=== PATIENT | female | born 1960 | race Caucasian/White ===

== ENCOUNTER 2017-07-07 07:39 | Inpatient (IN) | payer MEDICAID ==
[2017-07-07 07:43] VITALS: BMI 30.2
[2017-07-07] MEDS ORDERED: Sodium Chloride 0.9% 1,000 ML IV STA ×2 (08:42→10:57)
--- NOTE | 2017-07-07 08:59 | ED PDOC ---
HPI: Psych/Substance Abuse Time Seen by Provider: 07/07/17 08:41 Chief Complaint (Nursing): Psychiatric Evaluation History Per: Patient (brought by EMS for evaluation of suicidal ideation. Unclear who called. Patient states she was took 5 tablets of Fioricet because she was to hurt herself. ) History/Exam Limitations: no limitations Current Symptoms Are (Timing): Still Present Modifying Factor(s): Narcotics Severity: Moderate Past Medical History Reviewed: Historical Data, Nursing Documentation, Vital Signs Vital Signs: Last Vital Signs Temp 98.8 F 07/07/17 07:42 Pulse 122 H 07/07/17 07:42 Resp 18 07/07/17 07:42 BP 170/86 H 07/07/17 07:42 Pulse Ox 96 07/07/17 07:42 - Medical History PMH: Fibromyalgia, HTN, Migraine - Family History Family History: States: No Known Family Hx - Living Arrangements Living Arrangements: With Family - Immunization History Hx Tetanus Toxoid Vaccination: No Hx Influenza Vaccination: No Hx Pneumococcal Vaccination: No - Home Medications Home Medications: Ambulatory Orders Medication Instructions Recorded ASA/Bpm/Dm/Ppa HCl 05/18/13 Cetirizine HCl 05/18/13 DULoxetine 05/18/13 Gabapentin 05/18/13 Lisinopril 05/18/13 Metoprolol 05/18/13 Ondansetron 05/18/13 Prilosec 05/18/13 Ranitidine 05/18/13 Sertraline 05/18/13 traZODone 05/18/13 - Allergies Allergies/Adverse Reactions: Allergies Allergy/AdvReac Type Severity Reaction Status Date / Time Sulfa (Sulfonamide Allergy RASH Verified 07/07/17 07:47 Antibiotics) Review of Systems ROS Statement: Except As Marked, All Systems Reviewed And Found Negative Physical Exam - Reviewed Nursing Documentation Reviewed: Yes Vital Signs Reviewed: Yes - Physical Exam Appears: Positive for: Well, Non-toxic, No Acute Distress Head Exam: Positive for: ATRAUMATIC, NORMAL INSPECTION, NORMOCEPHALIC Skin: Positive for: Normal Color, Warm, DRY Eye Exam: Positive for: Normal appearance, EOMI, PERRL (diated and reactive bilaterally) ENT: Positive for: Normal ENT Inspection Neck: Positive for: Normal, Painless ROM Cardiovascular/Chest: Positive for: Regular Rate, Rhythm Respiratory: Positive for: CNT, Normal Breath Sounds Gastrointestinal/Abdominal: Positive for: Normal Exam, Bowel Sounds, Soft Back: Positive for: Normal Inspection Extremity: Positive for: Normal ROM Neurologic/Psych: Positive for: Alert, Oriented - Laboratory Results Result Diagrams: 07/07/17 09:00 07/07/17 09:00 - ECG O2 Sat by Pulse Oximetry: 96 - Critical Care Total Time (In Min): 30 Medical Decision Making Medical Decision Making: Case d/w Poison Control - will admit to medicine/telemetry - start Acetadote - repeat LFTs and acetaminophen levels 1 hour after 3rd dose of acetadote. Case d/w Dr. Arenas covering for Dr. Carlos Delacruz Disposition - Clinical Impression Clinical Impression: Tylenol overdose - Patient ED Disposition Is Patient to be Admitted: No Doctor Will See Patient In The: Office Counseled Patient/Family Regarding: Diagnosis, Need For Followup - Disposition Disposition: Transfer of Care Disposition Time: 11:00 Condition: GUARDED Forms: [facility] (Polish) - Pt Status Changed To: Hospital Disposition Of: Inpatient - Admit Certification Admit to Inpatient:: After my assessment, the patient will require hospitalization for at least two midnights. This is because of the severity of symptoms shown, intensity of services needed, and/or the medical risk in this patient being treated as an outpatient. - POA Present On Arrival: None
[2017-07-07 09:15] LABS: BASO # 0.1 K/uL (0.0-0.2); BASO % 0.7 % (0.0-2.0); EOS % 0.3 % (0.0-4.0); LYMPH # 2.6 K/uL (1.0-4.3); LYMPH % 30.9 % (20.0-40.0); MEAN CELL VOLUME 89.2 fl (81.0-99.0); MEAN CORPUSCULAR HGB CONC 32.5 g/dL (33.0-37.0); MEAN PLATELET VOLUME 8.1 fl (7.2-11.7); MONO # 0.6 K/uL (0.0-0.8); MONO % 6.8 % (0.0-10.0); NEUT # 5.2 K/uL (1.8-7.0); NEUT % 61.3 % (50.0-75.0); RBC 4.49 Mil/uL (3.80-5.20); RED CELL DISTRIBUTION WIDTH 14.8 % (11.5-14.5); WHITE BLOOD COUNT 8.5 K/uL (4.8-10.8)
[2017-07-07 09:41] LABS: ALB/GLOB RATIO 1.4 (1.0-2.1); ALBUMIN 4.3 g/dL (3.5-5.0); ALT/SGPT 32 U/L (9-52); AST/SGOT 27 U/L (14-36); BLOOD UREA NITROGEN 8 mg/dl (7-17); CALCIUM 9.4 mg/dL (8.4-10.2); GFR AFRICAN-AMERICAN > 60; GFR NON-AFRICAN AMERICAN > 60
[2017-07-07 11:01] LABS: SALICYLATE < 1.0 mg/dl
[2017-07-07] MEDS ORDERED: Acetylcysteine 10,890 MG in Dextrose 5% In Water 200 ML IVPB ONE (11:12)
[2017-07-07] MEDS ORDERED: Acetylcysteine 3,630 MG in Dextrose 5% In Water 500 ML IVPB ONE (12:30)
--- NOTE | 2017-07-07 13:23 | RAD ---
HISTORY: admission, tylenol OD COMPARISON: 10/11/2009 FINDINGS: LUNGS: No active pulmonary disease. PLEURA: No significant pleural effusion identified, no pneumothorax apparent. CARDIOVASCULAR: Normal. OSSEOUS STRUCTURES: No significant abnormalities. VISUALIZED UPPER ABDOMEN: Normal. OTHER FINDINGS: None. IMPRESSION: No active disease.
--- NOTE | 2017-07-07 13:48 | CP.PCM.HP ---
History of Present Illness - History of Present Illness History of Present Illness: This is a 57 y/o female admitted for suicidal drug overdose. She apparently took a significant amount of fioricet tablets. Past Patient History - Past Social History Smoking Status: Never Smoked - CARDIAC Hx Hypertension: Yes - NEUROLOGICAL Hx Migraine: Yes - PSYCHIATRIC Hx Substance Use: No Meds Allergies/Adverse Reactions: Allergies Allergy/AdvReac Type Severity Reaction Status Date / Time Sulfa (Sulfonamide Allergy RASH Verified 07/07/17 07:47 Antibiotics) Results - Vital Signs Recent Vital Signs: Last Vital Signs Temp 98.8 F 07/07/17 07:42 Pulse 110 H 07/07/17 11:38 Resp 20 07/07/17 11:38 BP 141/81 07/07/17 11:38 Pulse Ox 100 07/07/17 11:38 - Labs Result Diagrams: 07/07/17 09:00 07/07/17 09:00 Labs: Laboratory Results - last 24 hr 07/07/17 07/07/17 07/07/17 07:58 09:00 09:00 WBC RBC Hgb Hct MCV MCH MCHC RDW Plt Count MPV Neut % (Auto) Lymph % (Auto) [place] % (Auto) Eos % (Auto) Baso % (Auto) Neut # (Auto) Lymph # (Auto) [place] # (Auto) Eos # (Auto) Baso # (Auto) Sodium 142 Potassium 3.9 Chloride 102 Carbon Dioxide 23 Anion Gap 21 H BUN 8 Creatinine 0.6 L Est GFR ( Amer) > 60 Est GFR (Non-Af Amer) > 60 POC Glucose (mg/dL) 162 H Random Glucose 161 H Calcium 9.4 Total Bilirubin 0.4 AST 27 ALT 32 Alkaline Phosphatase 97 Total Protein 7.6 Albumin 4.3 Globulin 3.2 Albumin/Globulin Ratio 1.4 Salicylates < 1.0 Acetaminophen 138.0 H Alcohol, Quantitative < 10 07/07/17 09:00 WBC 8.5 RBC 4.49 Hgb 13.0 Hct 40.1 MCV 89.2 MCH 29.0 MCHC 32.5 L RDW 14.8 H Plt Count 249 MPV 8.1 Neut % (Auto) 61.3 Lymph % (Auto) 30.9 [place] % (Auto) 6.8 Eos % (Auto) 0.3 Baso % (Auto) 0.7 Neut # (Auto) 5.2 Lymph # (Auto) 2.6 [place] # (Auto) 0.6 Eos # (Auto) 0.0 Baso # (Auto) 0.1 Sodium Potassium Chloride Carbon Dioxide Anion Gap BUN Creatinine Est GFR ( Amer) Est GFR (Non-Af Amer) POC Glucose (mg/dL) Random Glucose Calcium Total Bilirubin AST ALT Alkaline Phosphatase Total Protein Albumin Globulin Albumin/Globulin Ratio Salicylates Acetaminophen Alcohol, Quantitative
[2017-07-07 14:09] LABS: BASO % 0.1 % (0.0-2.0); HEMOGLOBIN 12.7 g/dL (12.0-16.0); LYMPH # 1.2 K/uL (1.0-4.3); LYMPH % 17.2 % (20.0-40.0); MEAN CELL VOLUME 88.9 fl (81.0-99.0); MEAN CORPUSCULAR HEMOGLOBIN 28.8 pg (27.0-31.0); MEAN CORPUSCULAR HGB CONC 32.4 g/dL (33.0-37.0); MEAN PLATELET VOLUME 7.6 fl (7.2-11.7); MONO # 0.3 K/uL (0.0-0.8); MONO % 4.2 % (0.0-10.0); NEUT # 5.5 K/uL (1.8-7.0); NEUT % 78.5 % (50.0-75.0); NRBC % 0.1 % (0.0-0.0); RBC 4.42 Mil/uL (3.80-5.20); RED CELL DISTRIBUTION WIDTH 14.4 % (11.5-14.5)
[2017-07-07 14:19] LABS: ALB/GLOB RATIO 1.5 (1.0-2.1); ALBUMIN 4.5 g/dL (3.5-5.0); ALT/SGPT 28 U/L (9-52); AST/SGOT 27 U/L (14-36); BLOOD UREA NITROGEN 5 mg/dl (7-17); CALCIUM 8.3 mg/dL (8.4-10.2); GFR AFRICAN-AMERICAN > 60; GFR NON-AFRICAN AMERICAN > 60
[2017-07-07 14:42] LABS: INR 1.1 (0.9-1.2); PARTIAL THROMBOPLASTIN TIME 25.4 Seconds (25.6-37.1); PROTHROMBIN TIME 12.7 Seconds (9.8-13.1)
--- NOTE | 2017-07-07 15:01 | CT ---
PROCEDURE: CT HEAD WITHOUT CONTRAST. HISTORY: Tylenol OD, confusion COMPARISON: None available. TECHNIQUE: Axial computed tomography images were obtained through the head/brain without intravenous contrast. Radiation dose: Total exam DLP = 737.04 mGy-cm. This CT exam was performed using one or more of the following dose reduction techniques: Automated exposure control, adjustment of the mA and/or kV according to patient size, and/or use of iterative reconstruction technique. FINDINGS: HEMORRHAGE: No intracranial hemorrhage. BRAIN: No mass effect or edema. No atrophy or chronic microvascular ischemic changes. VENTRICLES: Unremarkable. No hydrocephalus. CALVARIUM: Unremarkable. PARANASAL SINUSES: Unremarkable as visualized. No significant inflammatory changes. MASTOID AIR CELLS: Unremarkable as visualized. No inflammatory changes. OTHER FINDINGS: None. IMPRESSION: Normal CT of the Head. No intracranial mass, hemorrhage or evidence of acute infarct.
[2017-07-07 15:10] LABS: BARBITURATES, UR POSITIVE (NEGATIVE); BENZODIAZEPINES, UR NEGATIVE (NEGATIVE); OPIATES, UR NEGATIVE (NEGATIVE); PHENCYCLIDINE, UR NEGATIVE (NEGATIVE)
[2017-07-07 15:33] LABS: SQUAMOUS EPITHIAL < 1 /hpf (0-5); URINE BILIRUBIN NEGATIVE (NEGATIVE); URINE BLOOD SMALL (NEGATIVE); URINE CLARITY CLEAR (Clear); URINE COLOR STRAW (YELLOW); URINE GLUCOSE (UA) >=500 mg/dL (Normal); URINE HYALINE CAST 0-2 /hpf (0-2); URINE LEUKOCYTE ESTERASE TRACE Leu/uL (Negative); URINE NITRATE NEGATIVE (NEGATIVE); URINE PROTEIN NEGATIVE (NEGATIVE); URINE UROBILINOGEN 0.2-1.0 mg/dL (0.2-1.0)
[2017-07-07] MEDS ORDERED: Acetylcysteine 7,260 MG in Dextrose 5% In Water 1,000 ML IVPB ONE (16:30)
--- NOTE | 2017-07-08 07:28 | CARD ---
APPROVED REPORT EKG Measurement Heart [id number] <Conclusion> Sinus tachycardia T wave abnormality, consider inferior ischemia Abnormal ECG
[2017-07-08 12:33] LABS: INR 1.2 (0.9-1.2); PROTHROMBIN TIME 13.1 Seconds (9.8-13.1)
[2017-07-08 12:38] LABS: ALB/GLOB RATIO 1.3 (1.0-2.1); ALBUMIN 4.1 g/dL (3.5-5.0); BILIRUBIN,DIRECT 0.4 mg/ml (0.0-0.4)
[2017-07-08] MEDS: Petrolatum UD PAK TOP SCH ×3 (13:15→23:10)
--- NOTE | 2017-07-08 15:36 | CP.PCM.CON ---
History of Present Illness - History of Present Illness History of Present Illness: pt is a 57 years old female with previous diagnosis of depression and anxiety, currently follows up with Dr Mills, pt has been feeling increasingly depressed and lonely, pt has been suffering from fibromyalgia for long time, on day of evaluation she started having suicidal ideations, pt overdosed on her medications, took five pills of fioricet and then contacted the ambulance pt reports depressed mood anhedonia, poor sleep and poor appetite, continues to have passive suicidal ideations, denied any current psychotic or manic symptoms Past Patient History - Past Medical History & Family History Past Medical History?: Yes - Past Social History Smoking Status: Never Smoked - CARDIAC Hx Cardiac Disorders: Yes Hx Hypertension: Yes - PULMONARY Hx Respiratory Disorders: No - NEUROLOGICAL Hx Neurological Disorder: Yes Hx Migraine: Yes - HEENT Hx HEENT Problems: No - RENAL Hx Chronic Kidney Disease: No - ENDOCRINE/METABOLIC Hx Endocrine Disorders: No - HEMATOLOGICAL/ONCOLOGICAL Hx Blood Disorders: No - INTEGUMENTARY Hx Dermatological Problems: No - MUSCULOSKELETAL/RHEUMATOLOGICAL Hx Musculoskeletal Disorders: No Hx Falls: No - GASTROINTESTINAL Hx Gastrointestinal Disorders: No - GENITOURINARY/GYNECOLOGICAL Hx Genitourinary Disorders: No - PSYCHIATRIC Hx Psychophysiologic Disorder: Yes Hx Depression: Yes Hx Substance Use: No - SURGICAL HISTORY Hx Surgeries: No - ANESTHESIA Hx Anesthesia: No Hx Anesthesia Reactions: No Hx Malignant Hyperthermia: No Meds Allergies/Adverse Reactions: Allergies Allergy/AdvReac Type Severity Reaction Status Date / Time Sulfa (Sulfonamide Allergy RASH Verified 07/07/17 07:47 Antibiotics) - Medications Medications: Current Medications Emollient Ointment (Vaseline Oint) 1 pkt TOP QID REPLACED BY [facility] Physical Exam - Psychiatric Exam Additional comments: pt seen in bed depressed , partial eye contact anxious mood and affect, terful sad, passive suicidal ideations stated she would rathe r not be alive, partial insight poor impulse control alert awake ox3 Results - Vital Signs Recent Vital Signs: Last Vital Signs Temp 98.4 F 07/08/17 13:00 Pulse 96 H 07/08/17 13:00 Resp 18 07/08/17 13:00 BP 118/84 07/08/17 13:00 Pulse Ox 100 07/08/17 13:00 - Labs Result Diagrams: 07/07/17 13:56 07/07/17 13:56 Labs: Laboratory Results - last 24 hr 07/07/17 07/08/17 07/08/17 14:40 12:16 12:16 PT 13.1 INR 1.2 Total Bilirubin 0.5 Direct Bilirubin 0.4 AST 49 H D ALT 29 Alkaline Phosphatase 67 Total Protein 7.4 Albumin 4.1 Globulin 3.3 Albumin/Globulin Ratio 1.3 Urine Color Straw Urine Clarity Clear Urine pH 6.0 Ur Specific [place] 1.016 Urine Protein Negative Urine Glucose (UA) >=500 Urine Ketones 80 Urine Blood Small Urine Nitrate Negative Urine Bilirubin Negative Urine Urobilinogen 0.2-1.0 Ur Leukocyte Esterase Trace Urine RBC (Auto) 9 H Urine Microscopic WBC 5 Ur Squamous Epith Cells < 1 Hyaline Casts 0-2 Assessment & Plan - Assessment and Plan (Free Text) Assessment: major depression recurrent severe Plan: pt presenting with depressed mood and passive suicidal ideation woul benifit from admission to psychiatry upon medical clearence pt agreed to sign for voluntary admission to psychiatry
[2017-07-08 21:25] LABS: ALB/GLOB RATIO 1.3 (1.0-2.1); ALBUMIN 3.9 g/dL (3.5-5.0); BILIRUBIN,DIRECT 0.3 mg/ml (0.0-0.4)
[2017-07-09 08:50] VITALS: O2SAT 98
[2017-07-09] MEDS: Petrolatum UD PAK TOP SCH (09:00)
--- NOTE | 2017-07-09 11:02 | CP.PCM.PN ---
Subjective - Date & Time of Evaluation Date of Evaluation: 07/08/17 Time of Evaluation: 10:00 - Subjective Subjective: Patient is much more alert and less confused. Has no headaches. Objective - Vital Signs/Intake and Output Vital Signs (last 24 hours): Temp Pulse Resp BP Pulse Ox 98.7 F 79 20 121/80 98 07/09/17 08:49 07/09/17 08:49 07/09/17 08:49 07/09/17 08:49 07/09/17 08:49 - Medications Medications: Current Medications Emollient Ointment (Vaseline Oint) 1 pkt TOP QID [facility] Last Admin: 07/08/17 23:10 Dose: 1 pkt - Labs Labs: 07/07/17 13:56 07/07/17 13:56 PT 13.1 Seconds (9.8-13.1) 07/08/17 12:16 INR 1.2 (0.9-1.2) 07/08/17 12:16 APTT 25.4 Seconds (25.6-37.1) L 07/07/17 13:56
[2017-07-09 16:28] VITALS: BP 123/95; PULSE 87; RESP 18; TEMP 98.2
--- NOTE | 2017-07-09 17:13 | CP.PCM.DIS ---
Provider - Provider Date of Admission: 07/07/17 11:17 Attending physician: Kinsey Payan MD Time Spent in preparation of Discharge (in minutes): 30 Diagnosis - Discharge Diagnosis (1) Tylenol overdose Status: Acute Hospital Course - Lab Results Lab Results: Most Recent Lab Values WBC 7.0 K/uL (4.8-10.8) 07/07/17 13:56 RBC 4.42 Mil/uL (3.80-5.20) 07/07/17 13:56 Hgb 12.7 g/dL (12.0-16.0) 07/07/17 13:56 Hct 39.3 % (34.0-47.0) 07/07/17 13:56 MCV 88.9 fl (81.0-99.0) 07/07/17 13:56 MCH 28.8 pg (27.0-31.0) 07/07/17 13:56 MCHC 32.4 g/dL (33.0-37.0) L 07/07/17 13:56 RDW 14.4 % (11.5-14.5) 07/07/17 13:56 Plt Count 233 K/uL (130-400) 07/07/17 13:56 MPV 7.6 fl (7.2-11.7) 07/07/17 13:56 Neut % (Auto) 78.5 % (50.0-75.0) H 07/07/17 13:56 Lymph % (Auto) 17.2 % (20.0-40.0) L 07/07/17 13:56 [place] % (Auto) 4.2 % (0.0-10.0) 07/07/17 13:56 Eos % (Auto) 0.0 % (0.0-4.0) 07/07/17 13:56 Baso % (Auto) 0.1 % (0.0-2.0) 07/07/17 13:56 Neut # (Auto) 5.5 K/uL (1.8-7.0) 07/07/17 13:56 Lymph # (Auto) 1.2 K/uL (1.0-4.3) 07/07/17 13:56 [place] # (Auto) 0.3 K/uL (0.0-0.8) 07/07/17 13:56 Eos # (Auto) 0.0 K/uL (0.0-0.7) 07/07/17 13:56 Baso # (Auto) 0.0 K/uL (0.0-0.2) 07/07/17 13:56 PT 13.1 Seconds (9.8-13.1) 07/08/17 12:16 INR 1.2 (0.9-1.2) 07/08/17 12:16 APTT 25.4 Seconds (25.6-37.1) L 07/07/17 13:56 Sodium 142 mmol/l (132-148) 07/07/17 13:56 Potassium 3.6 MMOL/L (3.6-5.0) 07/07/17 13:56 Chloride 100 mmol/L (98-107) 07/07/17 13:56 Carbon Dioxide 19 mmol/L (22-30) L 07/07/17 13:56 Anion Gap 27 (10-20) H 07/07/17 13:56 BUN 5 mg/dl (7-17) L 07/07/17 13:56 Creatinine 0.4 mg/dl (0.7-1.2) L 07/07/17 13:56 Est GFR ( Amer) > 60 07/07/17 13:56 Est GFR (Non-Af Amer) > 60 07/07/17 13:56 POC Glucose (mg/dL) 162 mg/dL (65-110) H 07/07/17 07:58 Random Glucose 139 mg/dL (65-105) H 07/07/17 13:56 Calcium 8.3 mg/dL (8.4-10.2) L 07/07/17 13:56 Total Bilirubin 0.4 mg/dl (0.2-1.3) 07/08/17 20:50 Direct Bilirubin 0.3 mg/ml (0.0-0.4) 07/08/17 20:50 AST 48 U/L (14-36) H 07/08/17 20:50 ALT 30 U/L (9-52) 07/08/17 20:50 Alkaline Phosphatase 72 U/L (38-126) 07/08/17 20:50 Total Protein 6.8 G/DL (6.3-8.2) 07/08/17 20:50 Albumin 3.9 g/dL (3.5-5.0) 07/08/17 20:50 Globulin 2.9 gm/dL (2.2-3.9) 07/08/17 20:50 Albumin/Globulin Ratio 1.3 (1.0-2.1) 07/08/17 20:50 Urine Color Straw (YELLOW) 07/07/17 14:40 Urine Clarity Clear (Clear) 07/07/17 14:40 Urine pH 6.0 (5.0-8.0) 07/07/17 14:40 Ur Specific [place] 1.016 (1.003-1.030) 07/07/17 14:40 Urine Protein Negative mg/dL (NEGATIVE) 07/07/17 14:40 Urine Glucose (UA) >=500 mg/dL (Normal) 07/07/17 14:40 Urine Ketones 80 mg/dL (NEGATIVE) 07/07/17 14:40 Urine Blood Small (NEGATIVE) 07/07/17 14:40 Urine Nitrate Negative (NEGATIVE) 07/07/17 14:40 Urine Bilirubin Negative (NEGATIVE) 07/07/17 14:40 Urine Urobilinogen 0.2-1.0 mg/dL (0.2-1.0) 07/07/17 14:40 Ur Leukocyte Esterase Trace [place]/uL (Negative) 07/07/17 14:40 Urine RBC (Auto) 9 /hpf (0-3) H 07/07/17 14:40 Urine Microscopic WBC 5 /hpf (0-5) 07/07/17 14:40 Ur Squamous Epith Cells < 1 /hpf (0-5) 07/07/17 14:40 Hyaline Casts 0-2 /hpf (0-2) 07/07/17 14:40 Salicylates < 1.0 mg/dl 07/07/17 09:00 Urine Opiates Screen Negative (NEGATIVE) 07/07/17 14:40 Urine Methadone Screen Negative (NEGATIVE) 07/07/17 14:40 Acetaminophen < 10.0 ug/ml (10.0-30.0) L 07/08/17 20:50 Ur Barbiturates Screen Positive (NEGATIVE) H 07/07/17 14:40 Ur Phencyclidine Scrn Negative (NEGATIVE) 07/07/17 14:40 Ur Amphetamines Screen Negative (NEGATIVE) 07/07/17 14:40 U Benzodiazepines Scrn Negative (NEGATIVE) 07/07/17 14:40 U Oth Cocaine Metabols Negative (NEGATIVE) 07/07/17 14:40 U Cannabinoids Screen Negative (NEGATIVE) 07/07/17 14:40 Alcohol, Quantitative < 10 mg/dl (0-10) 07/07/17 09:00 - Hospital Course Hospital Course: 57 YO F who presented with Tylenol overdose. Now has Acetamenophen level less then 10. Patient is stable to be transferred to psych. Discharge Exam - Head Exam Head Exam: ATRAUMATIC, NORMAL INSPECTION, NORMOCEPHALIC - Eye Exam Eye Exam: Normal appearance - Respiratory Exam Respiratory Exam: absent: Wheezes, Respiratory Distress - Cardiovascular Exam Cardiovascular Exam: REGULAR RHYTHM, +S1, +S2 - GI/Abdominal Exam GI & Abdominal Exam: Normal Bowel Sounds, Soft. absent: Tenderness - Neurological Exam Neurological exam: Alert, CN II-XII Intact, Oriented x3 - Skin Skin Exam: Normal Color, Warm Discharge Plan - Follow Up Plan Condition: GOOD Disposition: [facility]CHARGE TO [facility] Instructions: Acetaminophen Overdose (DC), Acetaminophen Overdose (GEN)
== END 2017-07-09 15:10 | DRG 449 ==
LOC: H.ER 07:39 → H.ERHOLD 11:17 → H.TEL 18:22 → H.PSYCH 07-09 15:31 → H.TEL 07-09 15:31 → H.PSYCH 07-09 16:16 → H.TEL 07-09 16:20 → H.PSYCH 07-09 17:19 → H.TEL 07-09 17:19 → UNDODISIN 07-09 17:21
PROVIDERS: ADMIT Psychiatry & Neurology Psychiatry; ATTEND Family Medicine
DX: T39.1X2A Poisoning by 4-Aminophenol derivatives, intentional self-harm, initial encounter (principal); F33.2 Major depressive disorder, recurrent severe without psychotic features; F32.9 Major depressive disorder, single episode, unspecified; F41.9 Anxiety disorder, unspecified; G43.909 Migraine, unspecified, not intractable, without status migrainosus; I10 Essential (primary) hypertension; M79.7 Fibromyalgia; Z88.2 Allergy status to sulfonamides

== ENCOUNTER 2017-07-09 15:56 | Inpatient (IN) | payer MEDICAID ==
[2017-07-09] MEDS ORDERED: Magnesium Hydroxide Susp 30 ml UD PO PRN (16:39)
[2017-07-09] MEDS ORDERED: DiphenhydrAMINE 50 mg/ml Inj IM PRN (16:39)
[2017-07-10 06:28] LABS: ALB/GLOB RATIO 1.2 (1.0-2.1); ALBUMIN 3.6 g/dL (3.5-5.0); ALT/SGPT 39 U/L (9-52); AST/SGOT 57 U/L (14-36); BLOOD UREA NITROGEN 11 mg/dl (7-17); GFR AFRICAN-AMERICAN > 60; GFR NON-AFRICAN AMERICAN > 60; HDL CHOLESTEROL 66 MG/DL (30-70)
[2017-07-10 06:29] LABS: LDL CHOLESTEROL 55 mg/dL (0-129)
[2017-07-10 06:35] LABS: T4 8.62 ug/dl (5.5-11.0)
[2017-07-10 06:37] LABS: BASO % 0.3 % (0.0-2.0); EOS # 0.1 K/uL (0.0-0.7); EOS % 1.9 % (0.0-4.0); LYMPH # 1.8 K/uL (1.0-4.3); MEAN CELL VOLUME 88.4 fl (81.0-99.0); MEAN CORPUSCULAR HEMOGLOBIN 29.5 pg (27.0-31.0); MEAN CORPUSCULAR HGB CONC 33.4 g/dL (33.0-37.0); MEAN PLATELET VOLUME 7.7 fl (7.2-11.7); MONO # 0.5 K/uL (0.0-0.8); MONO % 8.2 % (0.0-10.0); NEUT # 3.5 K/uL (1.8-7.0); NEUT % 59.6 % (50.0-75.0); NRBC % 0.1 % (0.0-0.0); RBC 4.07 Mil/uL (3.80-5.20); RED CELL DISTRIBUTION WIDTH 14.5 % (11.5-14.5); WHITE BLOOD COUNT 5.9 K/uL (4.8-10.8)
--- NOTE | 2017-07-10 08:17 | PCM.BM ---
<Martín Tubbs - Last Filed: 07/10/17 08:16> Treatment assets and liabiliti Patient Assests: self-reliant, ADL independent, good support system, negotiates basic needs, good past tx response Patient Liabilities: live alone, medical problems, imparied memory - Milieu Protocol Maintain good personal hygiene: daily Encourage regular showers, daily Assist patient to perform ADL's Conduct patient checks and document Observation sheet: Q15 minutes Maintain personal safety: every shift Educate patient to report safety concerns to staff, every shift Monitor environment for contraband/sharps Medication safety: Monitor for expected outcome, potential side effects: every shift, Assess barriers to learning: every shift, Assess readiness for medication education: every shift <Fifi Rodriguez - Last Filed: 07/11/17 16:08> Treatment assets and liabiliti Patient Assests: adapts well, cooperative, self-reliant, ADL independent, good support system, negotiates basic needs, good past tx response Patient Liabilities: live alone, medical problems, imparied memory, other (poor impulse control/coping skills) Family Contact Family involvement: Family/SO is involved Family contact: Patient agrees to contact, Family has been contacted by patient , Telephone contact initiated by staff Family contact name: Shaylee Juan-sister Family contacted how many times per week?: 2 Family contact comment: Program Coordinator placed call to patients sister (Shaylee Juan ) as requested by DAVID who is currently in [place]) to discuss patients progress on 3NP and collect further collateral information. Patients sister expressed concerns regarding patient calling her this morning reporting passive SI. Program Coordinator ensured patients sister that patient expressed SI during art therapy and staff was immediately made aware. Safety precautions and staff availability emphasized. Patients sister confirmed that patient recently began an adult medical day program as recommended by her homemaker for added structure and socialization. Program Coordinator explained that an adult medical day program was going to be this writers recommendation upon d/c. Patients sister expressed concerns regarding recent memory loss and possible dementia dx. As per Ms. Juan, patient has a supportive relationship with her sister, niece and homemaker. Patient does not have consistent/frequent communication with daughters, contributing to patients depression. Program Coordinator provided clinical updates regarding patients progress and will continue communicating with patients sister throughout discharge planning process. Patients sister agreeable to having patient return to [facility]/ Dr. Mills /[facility] services. - Outside Agency Agency 1 Care involvment: Following patient during stay, Information-sharing, Other Agency contact name: [facility] Agency contact number: [phone] Agency 2 Agency contact name: Avril(homemaker) Agency contact number: [phone] - Goals for Treatment Patient goals for treatment: Patient to continue stabilization on 3NP through medication management and group/supportive therapy. Patient to be encouraged to attend groups regularly to promote self-awareness,compliance, and improve insight, coping skills and self-esteem. Patient to be provided with referral for appropriate level of aftercare to reduce risk of future hospitalizations and ensure safety in the community. Discharge/Continuing Care - Education Needs Education Needs: Family Medication, Family Coping Skills, Family Community resources, Family Aftercare Safety Plan, Patient Medication, Patient Coping Skills, Patient Community resources, Patient Aftercare Safety Plan - Discharge Discharge Criteria: Tolerates medication w/o severe side effects, Free of Suicidal thoughts, Free of agitation, Normal sleep pattern, Ability to care for self, Reduction of target symptoms Discharge to:: Home, Other (homemaker) <Darren Corea - Last Filed: 07/19/17 17:28> Discharge/Continuing Care - Treatment Team Participation Patient/Family/SO Statement: 07/19/17 17:28 Pt offered no complaints, and was agreeable to discharge on Saturday. <Kinsey Payan - Last Filed: 07/22/17 09:29> - Diagnosis (1) Depression Status: Acute Interventions: psychotherapy, pharmacotherapy 07/22/17 09:28
--- NOTE | 2017-07-10 14:36 | PCM.PSYCH ---
Initial Psychiatric Evaluation - Initial Psychiatric Evaluation Legal Status: Capacity Chief Complaint (in patient's own words): I AM VERY LONELY AND SAD Patient's Reaction to Hospitalization: PT REQUESTED HELP History of Present Illness and Precipitating Events: pt is a 57 years old female with previous diagnosis of depression and anxiety, currently follows up with Dr Mills, pt has been feeling increasingly depressed and lonely, pt has been suffering from fibromyalgia for long time, on day of evaluation she started having suicidal ideations, pt overdosed on her medications, took five pills of fioricet and then contacted the ambulance pt reports depressed mood anhedonia, poor sleep and poor appetite, continues to have passive suicidal ideations, denied any current psychotic or manic symptoms PT also presenting with memory decline with possible pseudodementia Current Medications: Active Medications Generic Name Dose Route Start Last Admin Trade Name Freq PRN Reason Stop Dose Admin Acetaminophen 650 mg 07/09/17 16:39 Tylenol 325mg Tab PO Q4 PRN Pain, Mild (1-3) Al Hydrox/Mg Hydrox/Simethicone 30 ml 07/09/17 16:39 Maalox Plus 30 Ml PO Q4 PRN Dyspepsia Diphenhydramine HCl 50 mg 07/09/17 16:39 Benadryl IM Q6 PRN Extrapyramidal S/S Unable PO Diphenhydramine HCl 50 mg 07/09/17 16:46 07/10/17 08:24 Benadryl PO 50 mg Q6 PRN Administration dystonic reaction/eps Diphenhydramine HCl 50 mg 07/09/17 16:47 07/09/17 23:07 Benadryl PO 50 mg HS PRN Administration Sleep Duloxetine HCl 60 mg 07/10/17 14:19 Cymbalta PO DAILY MADI Emollient Ointment 1 pkt 07/10/17 13:00 Vaseline Oint TOP TID MADI Gabapentin 100 mg 07/10/17 17:00 Neurontin PO TID MADI Haloperidol 5 mg 07/09/17 16:39 07/10/17 08:23 Haldol PO 5 mg Q4 PRN Administration Agitation Haloperidol Lactate 5 mg 07/09/17 16:39 Haldol IM Q4 PRN Agitation, Unable to Take PO Lorazepam 2 mg 07/09/17 16:39 Ativan IM Q4 PRN Anxiety/Agitation,Unable PO Lorazepam 1 mg 07/10/17 14:23 Ativan PO TID PRN Anxiety Magnesium Hydroxide 30 ml 07/09/17 16:39 Milk Of Magnesia PO HS PRN Constipation Trazodone HCl 50 mg 07/10/17 22:00 Desyrel PO HS MADI Past Psychiatric History - Past Psychiatric History Explanation of prior treatment: PT HAS MULTIPLE INPATIENT HOSPITALIZATIONS DUE TO DEPRESSION AND SUICIDAL ATTEMPTS BY OVERDOSE History of ETOH/Drug Use: PT DENIED Pertinent Medical Hx (Current Medical&Sleep Prob, Allergies): Allergies Allergy/AdvReac Type Severity Reaction Status Date / Time Sulfa (Sulfonamide Allergy RASH Verified 07/07/17 07:47 Antibiotics) ASA/Bpm/Dm/Ppa HCl 05/18/13 Cetirizine HCl 05/18/13 DULoxetine 05/18/13 Gabapentin 05/18/13 Lisinopril 05/18/13 Metoprolol 05/18/13 Ondansetron 05/18/13 Prilosec 05/18/13 Ranitidine 05/18/13 Sertraline 05/18/13 traZODone 05/18/13 Mental Status Examination - Personal Presentation Personal Presentation: Looks older than stated age - Affect Affect: Constricted, Depressed - Motor Activity Motor Activity: Psychomotor Retardation - Reliability in Providing Information Reliability in Providing Information: Poor, due to altered mood - Speech Speech: Relevant - Mood Mood: Depressed, Anxious - Formal Thought Process Formal Thought Process: Circumstantial - Hallucinations/Delusions Additional comments: pt denied perceptual disturbances, non elicited - Obsessions/Compulsions Obsessions: No Compulsions: No - Cognitive Functions Orientation: Person, Place, Situation, Time Sensorium: Alert Attention/Concentration: Easily distracted Abstract Thinking: [place] Judgement: Imparied, as evidence by: Poor judgement - Risk Risk: Suicidal, Diminished functioning - Strength & Assets Inventory Strength & Assets Inventory: Family support - Limitations Additional comments: medical problems DSM 5 DX - DSM 5 DSM 5 Diagnosis: major depression recurrent severe panic disorder generalized anxiety disorder - Recommended/Plan of Treatment Treatment Recommendations and Plan of Treatment: start cymbalta 60mg trazodone 50mg qhs neurontin 100mg tid CBT group and supportive therapy
[2017-07-10] MEDS: Petrolatum UD PAK TOP SCH ×2 (14:38→17:17)
[2017-07-10] MEDS ORDERED: Metoprolol Succinate 100 mg XL Tab PO SCH (16:15)
--- NOTE | 2017-07-10 16:30 | CP.PCM.HP ---
<Vinod Meredith - Last Filed: 07/10/17 16:55> History of Present Illness - History of Present Illness History of Present Illness: 57 YO F who was initially admitted for suicidal drug overdose with Fioricet. She was medically cleared and transferred to psych. Present on Admission - Present on Admission Any Indicators Present on Admission: No Past Patient History - Past Medical History & Family History Past Medical History?: Yes - Past Social History Smoking Status: Never Smoked - CARDIAC Hx Cardiac Disorders: Yes Hx Hypertension: Yes - PULMONARY Hx Respiratory Disorders: No - NEUROLOGICAL Hx Neurological Disorder: Yes Hx Migraine: Yes - HEENT Hx HEENT Problems: No - RENAL Hx Chronic Kidney Disease: No - ENDOCRINE/METABOLIC Hx Endocrine Disorders: No - HEMATOLOGICAL/ONCOLOGICAL Hx Blood Disorders: No - INTEGUMENTARY Hx Dermatological Problems: No - MUSCULOSKELETAL/RHEUMATOLOGICAL Hx Musculoskeletal Disorders: No Hx Falls: No - GASTROINTESTINAL Hx Gastrointestinal Disorders: No - GENITOURINARY/GYNECOLOGICAL Hx Genitourinary Disorders: No - PSYCHIATRIC Hx Anxiety: Yes Hx Depression: Yes Hx Substance Use: No - SURGICAL HISTORY Hx Surgeries: No - ANESTHESIA Hx Anesthesia: No Hx Anesthesia Reactions: No Hx Malignant Hyperthermia: No Meds Allergies/Adverse Reactions: Allergies Allergy/AdvReac Type Severity Reaction Status Date / Time FISH Allergy Severe RASH Verified 07/10/17 17:26 Sulfa (Sulfonamide Allergy RASH Verified 07/07/17 07:47 Antibiotics) Physical Exam - Constitutional Appears: In Acute Distress - Head Exam Head Exam: NORMAL INSPECTION - Respiratory Exam Respiratory Exam: Clear to Auscultation Bilateral, NORMAL BREATHING PATTERN - Cardiovascular Exam Cardiovascular Exam: REGULAR RHYTHM, +S1, +S2 - Extremities Exam Extremities exam: Positive for: normal inspection - Neurological Exam Neurological exam: Alert, CN II-XII Intact, Oriented x3 - Skin Skin Exam: Warm Results - Vital Signs Recent Vital Signs: Last Vital Signs Temp 98.2 F 07/10/17 10:00 Pulse 101 H 07/10/17 10:00 Resp 18 07/10/17 10:00 BP 134/83 07/10/17 10:00 Pulse Ox - Labs Result Diagrams: 07/10/17 05:40 07/10/17 05:40 Labs: Laboratory Results - last 24 hr 07/10/17 07/10/17 07/10/17 05:40 05:40 05:40 WBC 5.9 RBC 4.07 Hgb 12.0 Hct 36.0 MCV 88.4 MCH 29.5 MCHC 33.4 RDW 14.5 Plt Count 203 MPV 7.7 Neut % (Auto) 59.6 Lymph % (Auto) 30.0 [place] % (Auto) 8.2 Eos % (Auto) 1.9 Baso % (Auto) 0.3 Neut # (Auto) 3.5 Lymph # (Auto) 1.8 [place] # (Auto) 0.5 Eos # (Auto) 0.1 Baso # (Auto) 0.0 Sodium 142 Potassium 3.6 Chloride 103 Carbon Dioxide 31 H Anion Gap 12 BUN 11 Creatinine 0.6 L Est GFR ( Amer) > 60 Est GFR (Non-Af Amer) > 60 Random Glucose 119 H Hemoglobin A1c 6.0 Calcium 9.0 Total Bilirubin 0.2 AST 57 H ALT 39 Alkaline Phosphatase 78 Total Protein 6.5 Albumin 3.6 Globulin 2.9 Albumin/Globulin Ratio 1.2 Triglycerides 52 Cholesterol 142 LDL Cholesterol Direct 55 HDL Cholesterol 66 Thyroxine (T4) 8.62 TSH 3rd Generation 0.55 Assessment & Plan - Assessment and Plan (Free Text) Assessment: 57 Y/O F w/ depression, anxiety HTN, HLD, Fibromyalgia has been transferred to psych for further management 1) HTN MEtoprolol succinate 50mg. Will increase to 100mg which is home dose if needed. Lisinopril 20 2) HLD - Home med is Rovastatin 20 - Start Atorvastatin 40 3) Depression - Continue with psych recommendation 4) DM2 - Metformin 500 mg BID 5) DVT prophylaxis - Lovenox <Polo Arenas - Last Filed: 07/15/17 19:36> Results - Vital Signs Recent Vital Signs: Last Vital Signs Temp 98.1 F 07/15/17 10:00 Pulse 73 07/15/17 10:00 Resp 16 07/15/17 10:00 BP 150/93 H 07/15/17 10:00 Pulse Ox - Labs Result Diagrams: 07/10/17 05:40 07/10/17 05:40 Assessment & Plan - Assessment and Plan (Free Text) Plan: I was present during evaluation and discussed with Dr Meredith re plans of care and mgt. Polo Arenas M.D.
[2017-07-10] MEDS: Pantoprazole 20 mg EC Tab PO SCH ×2 (17:11→17:12)
[2017-07-10] MEDS: Enoxaparin 40 mg Syringe SC SCH (17:13)
[2017-07-10] MEDS: Metoprolol Succinate 50 mg XL Tab PO SCH (17:19)
[2017-07-11] MEDS: Petrolatum UD PAK TOP SCH ×3 (08:34→17:52)
[2017-07-11] MEDS: Metoprolol Succinate 50 mg XL Tab PO SCH (08:34)
[2017-07-11] MEDS: Enoxaparin 40 mg Syringe SC SCH (08:34)
[2017-07-11] MEDS: Pantoprazole 20 mg EC Tab PO SCH (08:35)
--- NOTE | 2017-07-11 11:51 | PCM.PYCHPN ---
Psychiatric Progress Note - Psychiatric Progress Note Patient seen today, length of contact: PT EVALUATED DISCUSSED WITH TEAM CHART REVIEWED Patient Chief Complaint: Isaid I am afraid to hurt myself if I am home alone again, I am too scared to be by myself Problems Identified/Issues Discussed: pt evaluated with the treatment maria fernanda, pt presenting with anxious mood and affect, today in group verbalized that she continues to have thoughts to hurt herself but did not verbalize any current intent or plan on the unit, discussed with patient if she has any current suicidal thoughts or plans, patient denied and reported she only thinks about suicide if she is by herself at home as she gets lonely and fearful, cognitive behavior therapy provided discussed with patient the negative automatic thoughts that result in her anxiety and depression , possible alternative positive thoughts and alternative coping skills as art or music pt agreed pt reported feeling safe in the hospital as she is surrounded by supporting staff, denied any current suicidal or homicidal ideations denied perceptual disturbances, no reported changes in sleep or appetite, no reported side effects of medications Medical Problems: PT HAS MULTIPLE INPATIENT HOSPITALIZATIONS DUE TO DEPRESSION AND SUICIDAL ATTEMPTS BY OVERDOSE DSM 5 Symptoms Update: generalized anxiety disorder panic disorder Medication Change: No Medical Record Reviewed: Yes Mental Status Examination - Cognitive Function Orientation: Person, Place, Situation, Time Attention: WNL Concentration: Poor Association: WNL Fund of Knowledge: Poor Decription of patient's judgement and insights: poor insight and judgment - Mood Mood: Depressed, Anxious - Affect Affect: Constricted, Depressed - Speech Speech: Appropriate - Formal Thought Process Formal Thought Process: Circumstantial Psychotic Thoughts and Behaviors: pt denied perceptual disturbances non elicited - Suicidal Ideation Suicidal Ideation: No - Homicidal Ideation Homicidal Ideation: No Goal/Treatment Plan - Goal/Treatment Plan Need for Continued Stay: Severe depression anxiety, Discharge may exacerbated symptoms Progress Toward Problem(s) and Goals/Treatment Plan: continue cymbalta 60mg trazodone 50mg qhs increase neurontin to 200mg tid CBT group and supportive therapy
[2017-07-12] MEDS: Pantoprazole 20 mg EC Tab PO SCH (08:09)
[2017-07-12] MEDS: Metoprolol Succinate 100 mg XL Tab PO SCH (08:09)
--- NOTE | 2017-07-12 08:54 | PCM.RRT ---
Addendum entered and electronically signed by Matti Ramírez MD 07/12/17 10:11: EMILIANA ChavezM [email or web address] was also in attendance Original Note: <Matti Ramírez - Last Filed: 07/12/17 08:56> Plan - Assessment of Findings&Treatment Plan TILE SETTER APPRENTICE TILE SETTER APPRENTICE LOCATION [address] dining [place] TILE SETTER APPRENTICE REASON Fall from seated position S 57 yo F with pmhx of depression, anxiety, dm, htn, hld, fibromyalgia was witnessed on the ground after seated for breakfast O TILE SETTER APPRENTICE VITALS 189/107 97 bpm 100% Pt was seen seated and nervous with trembling. AAOX3. clear speech. Pt reported having to take many medications. Hx of suicide attempt with OD on fiorecet. vitals improved to 160/98 Cardiac: S1S2 no murmurs Lungs: clear bilaterally, no wheezing Abdomen: soft, non tender Pt was able to stand without swaying. Pt was observed to walk without abnormal gait. TILE SETTER APPRENTICE INTERVENTION continue meds including BP A/P 57 YO F with pmhx of depression, anxiety, dm, htn, hld, fibromyalgia. Mechanical fall with resulting anxiety. -Stable -Continue with Meds on board. TILE SETTER APPRENTICE LEADER: Dr. Balderas TILE SETTER APPRENTICE RESIDENTS: Dr. Ramírez, PGY1, Dr. Gruber PGY3, Dr. Grant, PGY2 <Jesus Balderas - Last Filed: 07/12/17 15:55> Plan - Assessment of Findings&Treatment Plan ATTENDING ATTESTATION: Patient was seen and examined. I discussed the case with the resident and agree with the findings and plan as documented in the residents note. ORTHOSTATICS NEGATIVE PATIENT HEMODYNAMICALLY STABLE FALL WITNESSED: NO HEAD OR NECK TRAUMA DENIES PAIN
[2017-07-12] MEDS: Petrolatum UD PAK TOP SCH ×3 (10:45→16:20)
--- NOTE | 2017-07-12 14:01 | PCM.PYCHPN ---
Psychiatric Progress Note - Psychiatric Progress Note Patient seen today, length of contact: PT EVALUATED DISCUSSED WITH TEAM CHART REVIEWED Patient Chief Complaint: I still feel anxious a lot Problems Identified/Issues Discussed: pt evaluated , presenting with anxious mood and affect, pt continues to have increased worry about most of her life events mainly about being alone on discharge, discussed with pt the need to challenge the negative automatic thoughts that make her anxious, pt continues to have passive suicidal ideations without a plan or intent on the unit reporting feeling staff when around people , pt denied psychotic symptoms no reported side effects of medications Medical Problems: PT HAS MULTIPLE INPATIENT HOSPITALIZATIONS DUE TO DEPRESSION AND SUICIDAL ATTEMPTS BY OVERDOSE DSM 5 Symptoms Update: major depression recurrent generalized anxiety disorder Medication Change: No Medical Record Reviewed: Yes Mental Status Examination - Cognitive Function Orientation: Person, Place, Situation, Time Attention: WNL Concentration: Poor Association: WNL Fund of Knowledge: Poor Decription of patient's judgement and insights: poor insight and judgment - Mood Mood: Depressed, Anxious - Affect Affect: Constricted, Depressed - Speech Speech: Appropriate - Formal Thought Process Formal Thought Process: Circumstantial Psychotic Thoughts and Behaviors: pt denied perceptual disturbances non elicited - Suicidal Ideation Suicidal Ideation: No - Homicidal Ideation Homicidal Ideation: No Goal/Treatment Plan - Goal/Treatment Plan Need for Continued Stay: Severe depression anxiety, Discharge may exacerbated symptoms Progress Toward Problem(s) and Goals/Treatment Plan: continue cymbalta 60mg trazodone 50mg qhs neurontin 200mg tid start buspar 5mg tid CBT group and supportive therapy Estimated Date of D/C: 07/19/17
[2017-07-12] MEDS: Enoxaparin 40 mg Syringe SC SCH (16:19)
[2017-07-13] MEDS: Pantoprazole 20 mg EC Tab PO SCH (08:40)
[2017-07-13] MEDS: Enoxaparin 40 mg Syringe SC SCH (08:41)
[2017-07-13] MEDS: Metoprolol Succinate 100 mg XL Tab PO SCH (08:43)
[2017-07-13] MEDS: Petrolatum UD PAK TOP SCH ×3 (08:44→17:51)
--- NOTE | 2017-07-13 15:36 | PCM.PYCHPN ---
Psychiatric Progress Note - Psychiatric Progress Note Patient seen today, length of contact: PT EVALUATED DISCUSSED WITH TEAM CHART REVIEWED Patient Chief Complaint: feeling anxious difficulty sleeping worrying about future Problems Identified/Issues Discussed: alteration in mood alteration in coping alteration in cognition Medical Problems: per chart pt being followed by hospitalist Diagnostic Results: per psychiatry per medicine per nursing per social work per recreational therapy DSM 5 Symptoms Update: alteration in mood anxious, thoughts per staff are beginning to improve, continues with difficulty sleeping Medication Change: No Medical Record Reviewed: Yes Consults ordered or reviewed: pt being followed by hospitalist Mental Status Examination - Cognitive Function Orientation: Person, Place, Situation, Time Attention: WNL Concentration: Poor Association: WNL Fund of Knowledge: Poor Decription of patient's judgement and insights: impaired - Mood Mood: Depressed, Anxious - Affect Affect: Constricted, Depressed - Speech Speech: Appropriate - Formal Thought Process Formal Thought Process: Circumstantial - Homicidal Ideation Homicidal Ideation: No Goal/Treatment Plan - Goal/Treatment Plan Need for Continued Stay: Severe depression anxiety, Discharge may exacerbated symptoms Progress Toward Problem(s) and Goals/Treatment Plan: inpt milieu vital signs and clinical observation per protocol and per clinical status complaints of insomnia will increase trazodone to 100mg po hs adjust meds per status discharge planning in progress Estimated Date of D/C: 07/19/17 - Smoking Cessation Smoking Cessation Initiated: No Reason for not providing: defers
[2017-07-14] MEDS: Pantoprazole 20 mg EC Tab PO SCH (08:34)
[2017-07-14] MEDS: Metoprolol Succinate 100 mg XL Tab PO SCH (08:35)
[2017-07-14] MEDS: Petrolatum UD PAK TOP SCH ×3 (08:37→18:01)
--- NOTE | 2017-07-14 09:48 | PN ---
DATE: 07/14/2017 MEDICAL FOLLOWUP PROGRESS NOTE SUBJECTIVE: The patient is seen and examined. The patient . The patient remains in progressive care unit on telemetry monitoring. depressed. No specific issue reported by nursing staff. PHYSICAL EXAMINATION: GENERAL: The patient is in no acute distress. VITAL SIGNS: Stable. Physical exam is essentially unchanged. DIAGNOSTIC DATA: Available diagnostic data reviewed. PLAN: Overall, the patient's general medical condition is stable, still require inpatient while treatment. Plan as ordered. Brandt Tejeda MD
--- NOTE | 2017-07-14 18:03 | PCM.PYCHPN ---
Psychiatric Progress Note - Psychiatric Progress Note Patient seen today, length of contact: PT EVALUATED DISCUSSED WITH TEAM CHART REVIEWED Patient Chief Complaint: feeling anxious difficulty sleeping worrying about future somewhat less staff report pt received prn for anxiety Problems Identified/Issues Discussed: alteration in mood alteration in coping alteration in cognition Medical Problems: per chart pt being followed by hospitalist Diagnostic Results: per psychiatry per medicine per nursing per social work per recreational therapy DSM 5 Symptoms Update: alteration in coping alteration in mood Medication Change: No Medical Record Reviewed: Yes Consults ordered or reviewed: alteration in coping Mental Status Examination - Cognitive Function Orientation: Person, Place, Situation, Time Attention: WNL Concentration: Poor Association: WNL Fund of Knowledge: Poor Decription of patient's judgement and insights: impaired - Mood Mood: Depressed, Anxious - Affect Affect: Constricted, Depressed - Speech Speech: Appropriate - Formal Thought Process Formal Thought Process: Circumstantial - Suicidal Ideation Suicidal Ideation: No - Homicidal Ideation Homicidal Ideation: No Goal/Treatment Plan - Goal/Treatment Plan Need for Continued Stay: Severe depression anxiety, Discharge may exacerbated symptoms Progress Toward Problem(s) and Goals/Treatment Plan: inpt milieu vital signs and clinical observation per protocol and per clinical status adjust meds per status discharge planning in progress Estimated Date of D/C: 07/19/17 - Smoking Cessation Smoking Cessation Initiated: No Reason for not providing: pt defers
[2017-07-15] MEDS: Pantoprazole 20 mg EC Tab PO SCH (08:54)
[2017-07-15] MEDS: Metoprolol Succinate 100 mg XL Tab PO SCH (08:55)
[2017-07-15] MEDS: Petrolatum UD PAK TOP SCH ×3 (17:58→18:00)
[2017-07-15] MEDS: Alum-Mag Hydrox-Simethicone Susp (30 mL) PO PRN ×2 (18:51→22:47)
--- NOTE | 2017-07-15 20:24 | PCM.PYCHPN ---
Psychiatric Progress Note - Psychiatric Progress Note Patient seen today, length of contact: PT EVALUATED DISCUSSED WITH TEAM CHART REVIEWED Patient Chief Complaint: feeling anxious difficulty sleeping worrying about future somewhat less staff report pt is somewhat anxious Problems Identified/Issues Discussed: alteration in mood alteration in coping alteration in cognition Medical Problems: per chart pt being followed by hospitalist Diagnostic Results: per psychiatry per medicine per nursing per social work per recreational therapy DSM 5 Symptoms Update: somewhat increased anxiety Medication Change: No Medical Record Reviewed: Yes Consults ordered or reviewed: pt being followed by hospitalist Mental Status Examination - Cognitive Function Orientation: Person, Place, Situation, Time Attention: WNL Concentration: Poor Association: WNL Fund of Knowledge: Poor Decription of patient's judgement and insights: impaired - Mood Mood: Depressed, Anxious - Affect Affect: Constricted, Depressed - Speech Speech: Appropriate - Formal Thought Process Formal Thought Process: Circumstantial - Suicidal Ideation Suicidal Ideation: No - Homicidal Ideation Homicidal Ideation: No Goal/Treatment Plan - Goal/Treatment Plan Need for Continued Stay: Severe depression anxiety, Discharge may exacerbated symptoms Progress Toward Problem(s) and Goals/Treatment Plan: inpt milieu vital signs and clinical observation per protocol and per clinical status adjust meds per status increase buspar to 10mg po bid discharge planning in progress Estimated Date of D/C: 07/19/17 - Smoking Cessation Smoking Cessation Initiated: No Reason for not providing: pt defers
[2017-07-16] MEDS: Petrolatum UD PAK TOP SCH ×3 (08:45→17:19)
[2017-07-16] MEDS: Pantoprazole 20 mg EC Tab PO SCH (08:45)
[2017-07-16] MEDS: Metoprolol Succinate 100 mg XL Tab PO SCH (08:46)
--- NOTE | 2017-07-16 11:05 | CP.PCM.PN ---
<Yomi Matias - Last Filed: 07/16/17 11:07> Subjective - Date & Time of Evaluation Date of Evaluation: 07/16/17 Time of Evaluation: 10:45 - Subjective Subjective: 57 y/o F feels better, denies CP, SOB, palpitations, vomiting, nausea, dizziness , diarrhea, melena or hematochezia. [employer] called 4 days ago after falling. Patient states she fainted at the time. Denies similar symptoms after episode. "Feels better" Objective - Vital Signs/Intake and Output Vital Signs (last 24 hours): Temp Pulse Resp BP Pulse Ox 97.9 F 76 18 158/97 H 07/16/17 09:00 07/16/17 09:00 07/16/17 09:00 07/16/17 09:00 - Medications Medications: Current Medications Acetaminophen (Tylenol 325mg Tab) 650 mg PO Q4 PRN PRN Reason: Pain, Mild (1-3) Al Hydrox/Mg Hydrox/Simethicone (Maalox Plus 30 Ml) 30 ml PO Q4 PRN PRN Reason: Dyspepsia Last Admin: 07/15/17 22:47 Dose: 30 ml Atorvastatin Calcium (Lipitor) 40 mg PO DAILY [facility] Last Admin: 07/16/17 08:46 Dose: 40 mg Baclofen (Lioresal) 10 mg PO DAILY [facility] Last Admin: 07/16/17 08:45 Dose: 10 mg Buspirone HCl (Buspar) 10 mg PO BID [facility] Last Admin: 07/16/17 08:45 Dose: 10 mg Diphenhydramine HCl (Benadryl) 50 mg IM Q6 PRN PRN Reason: Extrapyramidal S/S Unable PO Diphenhydramine HCl (Benadryl) 50 mg PO Q6 PRN PRN Reason: dystonic reaction/eps Last Admin: 07/10/17 14:35 Dose: 50 mg Diphenhydramine HCl (Benadryl) 50 mg PO HS PRN PRN Reason: Sleep Last Admin: 07/13/17 02:09 Dose: 50 mg Duloxetine HCl (Cymbalta) 60 mg PO DAILY [facility] Last Admin: 07/16/17 08:46 Dose: 60 mg Emollient Ointment (Vaseline Oint) 1 pkt TOP TID [facility] Last Admin: 07/16/17 08:45 Dose: 1 pkt Gabapentin (Neurontin) 200 mg PO TID [facility] Last Admin: 07/16/17 08:46 Dose: 200 mg Haloperidol (Haldol) 5 mg PO Q4 PRN PRN Reason: Agitation Last Admin: 07/10/17 14:36 Dose: 5 mg Haloperidol Lactate (Haldol) 5 mg IM Q4 PRN PRN Reason: Agitation, Unable to Take PO Lisinopril (Zestril) 20 mg PO DAILY [facility] Last Admin: 07/16/17 08:46 Dose: 20 mg Lorazepam (Ativan) 2 mg IM Q4 PRN PRN Reason: Anxiety/Agitation,Unable PO Lorazepam (Ativan) 1 mg PO TID PRN PRN Reason: Anxiety Last Admin: 07/13/17 10:22 Dose: 1 mg Magnesium Hydroxide (Milk Of Magnesia) 30 ml PO HS PRN PRN Reason: Constipation Memantine (Namenda) 10 mg PO DAILY [facility] Last Admin: 07/16/17 08:45 Dose: 10 mg Metformin HCl (Glucophage) 500 mg PO BIDWM [facility] Last Admin: 07/16/17 08:46 Dose: 500 mg Metoprolol Succinate (Toprol Xl) 100 mg PO DAILY [facility] Last Admin: 07/16/17 08:46 Dose: 100 mg Pantoprazole Sodium (Protonix Ec Tab) 20 mg PO DAILY [facility] Last Admin: 07/16/17 08:45 Dose: 20 mg Trazodone HCl (Desyrel) 100 mg PO HS PRN PRN Reason: Insomnia Last Admin: 07/15/17 21:03 Dose: 100 mg - Labs Labs: 07/10/17 05:40 07/10/17 05:40 - Constitutional Appears: Non-toxic, No Acute Distress - Head Exam Head Exam: ATRAUMATIC - Eye Exam Eye Exam: EOMI, PERRL - ENT Exam ENT Exam: Mucous Membranes Moist - Respiratory Exam Respiratory Exam: Clear to Ausculation Bilateral, NORMAL BREATHING PATTERN. absent: Decreased Breath Sounds, Rales, Wheezes - Cardiovascular Exam Cardiovascular Exam: REGULAR RHYTHM, +S1, +S2. absent: Gallop - GI/Abdominal Exam GI & Abdominal Exam: Soft. absent: Tenderness - Extremities Exam Extremities Exam: Full ROM, Normal Capillary Refill. absent: Tenderness - Neurological Exam Neurological Exam: Alert, Awake, Oriented x3 - Psychiatric Exam Psychiatric exam: Normal Affect, Normal Mood - Skin Skin Exam: Normal Color, Warm Assessment and Plan - Assessment and Plan (Free Text) Assessment: 1) HTN stable C/wMetoprolol 100mg daily. and Lisinopril 20 mg daily 2) HLD - C/w Start Atorvastatin 40 3) Depression - Continue with psych management 4) DM2 - C/w Metformin 500 mg BID 5)Episode of syncope/fall -Orthostatic VS q12h -BP borderline high -C/W current meds <Polo Arenas - Last Filed: 07/17/17 21:11> Objective - Vital Signs/Intake and Output Vital Signs (last 24 hours): Temp Pulse Resp BP Pulse Ox 98.4 F 70 18 145/91 H 07/17/17 16:58 07/17/17 16:58 07/17/17 16:58 07/17/17 16:58 - Medications Medications: Current Medications Acetaminophen (Tylenol 325mg Tab) 650 mg PO Q4 PRN PRN Reason: Pain, Mild (1-3) Al Hydrox/Mg Hydrox/Simethicone (Maalox Plus 30 Ml) 30 ml PO Q4 PRN PRN Reason: Dyspepsia Last Admin: 07/17/17 11:20 Dose: 30 ml Atorvastatin Calcium (Lipitor) 40 mg PO DAILY [facility] Last Admin: 07/17/17 09:10 Dose: 40 mg Baclofen (Lioresal) 10 mg PO DAILY [facility] Last Admin: 07/17/17 09:08 Dose: 10 mg Buspirone HCl (Buspar) 10 mg PO BID [facility] Last Admin: 07/17/17 17:11 Dose: 10 mg Buspirone HCl (Buspar) 5 mg PO DAILY@1200 [facility] Last Admin: 07/17/17 13:42 Dose: 5 mg Diphenhydramine HCl (Benadryl) 50 mg IM Q6 PRN PRN Reason: Extrapyramidal S/S Unable PO Diphenhydramine HCl (Benadryl) 50 mg PO Q6 PRN PRN Reason: dystonic reaction/eps Last Admin: 07/10/17 14:35 Dose: 50 mg Diphenhydramine HCl (Benadryl) 50 mg PO HS PRN PRN Reason: Sleep Last Admin: 02/20/18 21:25 Dose: 50 mg Duloxetine HCl (Cymbalta) 60 mg PO DAILY [facility] Last Admin: 07/17/17 09:08 Dose: 60 mg Emollient Ointment (Vaseline Oint) 1 pkt TOP TID [facility] Last Admin: 07/17/17 17:10 Dose: 1 pkt Gabapentin (Neurontin) 200 mg PO TID [facility] Last Admin: 07/17/17 17:10 Dose: 200 mg Haloperidol (Haldol) 5 mg PO Q4 PRN PRN Reason: Agitation Last Admin: 07/10/17 14:36 Dose: 5 mg Haloperidol Lactate (Haldol) 5 mg IM Q4 PRN PRN Reason: Agitation, Unable to Take PO Lisinopril (Zestril) 20 mg PO DAILY [facility] Last Admin: 07/17/17 09:10 Dose: 20 mg Lorazepam (Ativan) 2 mg IM Q4 PRN PRN Reason: Anxiety/Agitation,Unable PO Lorazepam (Ativan) 1 mg PO TID PRN PRN Reason: Anxiety Last Admin: 07/13/17 10:22 Dose: 1 mg Magnesium Hydroxide (Milk Of Magnesia) 30 ml PO HS PRN PRN Reason: Constipation Memantine (Namenda) 10 mg PO DAILY [facility] Last Admin: 07/17/17 09:09 Dose: 10 mg Metformin HCl (Glucophage) 500 mg PO BIDWM [facility] Last Admin: 07/17/17 17:10 Dose: 500 mg Metoprolol Succinate (Toprol Xl) 100 mg PO DAILY [facility] Last Admin: 07/17/17 09:10 Dose: 100 mg Pantoprazole Sodium (Protonix Ec Tab) 20 mg PO DAILY [facility] Last Admin: 07/17/17 09:09 Dose: 20 mg Trazodone HCl (Desyrel) 150 mg PO HS [facility] - Labs Labs: 07/10/17 05:40 07/10/17 05:40 Assessment and Plan - Assessment and Plan (Free Text) Plan: I was present during evaluation and discussed with Dr sonido matias re plans of care and mgt. Polo Arenas M.D.
--- NOTE | 2017-07-16 19:08 | PCM.PYCHPN ---
Psychiatric Progress Note - Psychiatric Progress Note Patient seen today, length of contact: PT EVALUATED DISCUSSED WITH TEAM CHART REVIEWED Patient Chief Complaint: feeling anxious increase at hour of lunch (dose was increased for buspar but on a bid basis in attempt to avoid mid day somnolence yesterday). was seen by medical doctor while on floor, staff report pt has been adherent with medication Problems Identified/Issues Discussed: alteration in mood alteration in coping alteration in cognition Medical Problems: per chart pt being followed by hospitalist Diagnostic Results: per psychiatry per medicine per nursing per social work per recreational therapy DSM 5 Symptoms Update: someimproved sleep on going anxiety Medication Change: Yes (buspar 10mg am 5mg 12n and 10mg po 1700) Medical Record Reviewed: Yes Consults ordered or reviewed: medical doctor Mental Status Examination - Cognitive Function Orientation: Person, Place, Situation, Time Attention: WNL Concentration: Poor Association: WNL Fund of Knowledge: Poor Decription of patient's judgement and insights: impaired - Mood Mood: Depressed, Anxious - Affect Affect: Constricted, Depressed - Speech Speech: Appropriate - Formal Thought Process Formal Thought Process: Circumstantial - Homicidal Ideation Homicidal Ideation: No Goal/Treatment Plan - Goal/Treatment Plan Need for Continued Stay: Severe depression anxiety, Discharge may exacerbated symptoms Progress Toward Problem(s) and Goals/Treatment Plan: inpt milieu vital signs and clinical observation per protocol and per clinical status adjust meds per status increase buspar to 10mg po bid and 5mg po 12n discharge planning in progress Estimated Date of D/C: 07/19/17 - Smoking Cessation Smoking Cessation Initiated: No Reason for not providing: pt defers
[2017-07-17] MEDS: Pantoprazole 20 mg EC Tab PO SCH (09:09)
[2017-07-17] MEDS: Petrolatum UD PAK TOP SCH ×3 (09:10→17:10)
[2017-07-17] MEDS: Metoprolol Succinate 100 mg XL Tab PO SCH (09:10)
[2017-07-17] MEDS: Alum-Mag Hydrox-Simethicone Susp (30 mL) PO PRN (11:20)
--- NOTE | 2017-07-17 18:30 | PCM.PYCHPN ---
Psychiatric Progress Note - Psychiatric Progress Note Patient seen today, length of contact: PT EVALUATED DISCUSSED WITH TEAM CHART REVIEWED Patient Chief Complaint: pt reports that is feeling less depressed, but having trouble sleeping at night received prn last night. feeling anxious increase at hour of lunch (dose was increased for buspar but on a bid basis in attempt to avoid mid day somnolence yesterday). was seen by medical doctor while on floor, staff report pt has been adherent with medication Problems Identified/Issues Discussed: alteration in mood alteration in coping alteration in cognition Medical Problems: per chart pt being followed by hospitalist Diagnostic Results: per psychiatry per medicine per nursing per social work per recreational therapy DSM 5 Symptoms Update: alteration in sleep Medication Change: Yes (increase trazodone to 150gm po hs) Medical Record Reviewed: Yes Consults ordered or reviewed: pt being followed by hospitalist Mental Status Examination - Cognitive Function Orientation: Person, Place, Situation, Time Attention: WNL Concentration: WNL Association: WNL Fund of Knowledge: WNL Decription of patient's judgement and insights: impaired - Mood Mood: Depressed, Anxious - Affect Affect: Broad - Speech Speech: Appropriate - Formal Thought Process Formal Thought Process: Circumstantial - Homicidal Ideation Homicidal Ideation: No Goal/Treatment Plan - Goal/Treatment Plan Need for Continued Stay: Severe depression anxiety, Discharge may exacerbated symptoms Progress Toward Problem(s) and Goals/Treatment Plan: inpt milieu vital signs and clinical observation per protocol and per clinical status adjust meds per status increase trazodone to 150mg po hs discharge planning in progress Estimated Date of D/C: 07/19/17 - Smoking Cessation Smoking Cessation Initiated: No Reason for not providing: pt defers
[2017-07-18] MEDS: Pantoprazole 20 mg EC Tab PO SCH (10:17)
[2017-07-18] MEDS: Petrolatum UD PAK TOP SCH ×3 (10:21→16:55)
[2017-07-18] MEDS: Metoprolol Succinate 100 mg XL Tab PO SCH (12:07)
--- NOTE | 2017-07-18 16:12 | PCM.PYCHPN ---
Psychiatric Progress Note - Psychiatric Progress Note Patient seen today, length of contact: PT EVALUATED DISCUSSED WITH TEAM CHART REVIEWED Patient Chief Complaint: I am feeling better Problems Identified/Issues Discussed: pt evaluated , presenting with better mood , brighter affect, continues to have episodes of anxiety, denied any current suicidal or homicidal ideations denied perceptual disturbances, no reported side effects of medications Medical Problems: PT HAS MULTIPLE INPATIENT HOSPITALIZATIONS DUE TO DEPRESSION AND SUICIDAL ATTEMPTS BY OVERDOSE DSM 5 Symptoms Update: major depression Medication Change: No (increase trazodone to 150gm po hs) Medical Record Reviewed: Yes Mental Status Examination - Cognitive Function Orientation: Person, Place, Situation, Time Attention: WNL Concentration: WNL Association: WNL Fund of Knowledge: WNL - Mood Mood: Depressed, Anxious - Affect Affect: Broad - Speech Speech: Appropriate - Formal Thought Process Formal Thought Process: Circumstantial - Suicidal Ideation Suicidal Ideation: No - Homicidal Ideation Homicidal Ideation: No Goal/Treatment Plan - Goal/Treatment Plan Need for Continued Stay: Severe depression anxiety, Discharge may exacerbated symptoms Progress Toward Problem(s) and Goals/Treatment Plan: continue current medications CBT group and supportive therapy Estimated Date of D/C: 07/19/17
[2017-07-19] MEDS: Metoprolol Succinate 100 mg XL Tab PO SCH (08:31)
[2017-07-19] MEDS: Pantoprazole 20 mg EC Tab PO SCH (08:31)
[2017-07-19] MEDS: Petrolatum UD PAK TOP SCH ×3 (08:33→18:00)
--- NOTE | 2017-07-19 14:51 | PCM.PYCHPN ---
Psychiatric Progress Note - Psychiatric Progress Note Patient seen today, length of contact: PT EVALUATED DISCUSSED WITH TEAM CHART REVIEWED Patient Chief Complaint: I am feeling better, I get anxious at times Problems Identified/Issues Discussed: pt evaluated with treatment team , presenting with better mood , brighter affect, continues to have episodes of anxiety, denied any current suicidal or homicidal ideations denied perceptual disturbances, no reported side effects of medications Medical Problems: PT HAS MULTIPLE INPATIENT HOSPITALIZATIONS DUE TO DEPRESSION AND SUICIDAL ATTEMPTS BY OVERDOSE DSM 5 Symptoms Update: generalized anxiety disorder majior depression Medication Change: No Medical Record Reviewed: Yes Mental Status Examination - Cognitive Function Orientation: Person, Place, Situation, Time Attention: WNL Concentration: WNL Association: WNL Fund of Knowledge: WNL - Mood Mood: Depressed, Anxious - Affect Affect: Broad - Speech Speech: Appropriate - Formal Thought Process Formal Thought Process: Circumstantial - Suicidal Ideation Suicidal Ideation: No - Homicidal Ideation Homicidal Ideation: No Goal/Treatment Plan - Goal/Treatment Plan Need for Continued Stay: Severe depression anxiety, Discharge may exacerbated symptoms Progress Toward Problem(s) and Goals/Treatment Plan: continue current medications CBT group and supportive therapy Estimated Date of D/C: 07/19/17
[2017-07-20] MEDS: Metoprolol Succinate 100 mg XL Tab PO SCH (09:28)
[2017-07-20] MEDS: Pantoprazole 20 mg EC Tab PO SCH (09:29)
[2017-07-20] MEDS: Petrolatum UD PAK TOP SCH ×3 (09:29→17:25)
--- NOTE | 2017-07-20 09:40 | PCM.PYCHPN ---
Psychiatric Progress Note - Psychiatric Progress Note Patient seen today, length of contact: Patient evaluated, chart reviewed Patient Chief Complaint: "I'm anxious." Problems Identified/Issues Discussed: Patient continues to report feeling anxious, but denies currently feeling depressed. No psychosis/SI/HI. She denies adverse effects to medications. She engages appropriately w/ peers and staff. Patient was encourage to attend groups. She reports improved appetite and sleep. Medication Change: No Medical Record Reviewed: Yes Consults ordered or reviewed: Medicine Mental Status Examination - Cognitive Function Orientation: Person, Place, Situation, Time Memory: Impaired Attention: WNL Concentration: WNL Association: [facility] Fund of Knowledge: [facility] Decription of patient's judgement and insights: Fair I/J - Mood Mood: Depressed, Anxious - Affect Affect: Broad - Speech Speech: Appropriate - Formal Thought Process Formal Thought Process: No Impairment Psychotic Thoughts and Behaviors: No AH/VH/paranoia/delusions - Suicidal Ideation Suicidal Ideation: No - Homicidal Ideation Homicidal Ideation: No Goal/Treatment Plan - Goal/Treatment Plan Need for Continued Stay: Severe depression anxiety, Discharge may exacerbated symptoms Progress Toward Problem(s) and Goals/Treatment Plan: SHELBI; MDD -Individual and group therapy -Continue Buspar 10 mg PO BID/ 5 mg PO Daily@1200; Cymbalta 60 mg PO Daily, Neurontin 200 mg PO TID, Namenda 10 mg PO Daily and Trazodone 150 mg PO HS -Disposition planning Estimated Date of D/C: 07/22/17
[2017-07-21] MEDS: Pantoprazole 20 mg EC Tab PO SCH (08:35)
[2017-07-21] MEDS: Metoprolol Succinate 100 mg XL Tab PO SCH (08:35)
[2017-07-21] MEDS: Petrolatum UD PAK TOP SCH ×3 (08:36→17:36)
--- NOTE | 2017-07-21 10:20 | PCM.PYCHPN ---
Psychiatric Progress Note - Psychiatric Progress Note Patient seen today, length of contact: Patient evaluated, chart reviewed Patient Chief Complaint: "I'm anxious." Problems Identified/Issues Discussed: Patient continues to report feeling anxious, but denies currently feeling depressed. We discussed increasing the Buspirone. We discussed the importance of continued outpatient therapy upon discharge to help manage her anxiety. No psychosis/SI/HI. She denies adverse effects to medications. She engages appropriately w/ peers and staff. Patient was encourage to attend groups. She reports improved appetite and sleep. Medication Change: Yes (Increase Buspirone to 10 mg PO TID) Medical Record Reviewed: Yes Consults ordered or reviewed: Medicine Mental Status Examination - Cognitive Function Orientation: Person, Place, Situation, Time Memory: Impaired Attention: WNL Concentration: WNL Association: WNL Fund of Knowledge: [facility] Decription of patient's judgement and insights: Fair I/J - Mood Mood: Anxious - Affect Affect: Broad - Speech Speech: Appropriate - Formal Thought Process Formal Thought Process: No Impairment Psychotic Thoughts and Behaviors: No AH/VH/paranoia/delusions - Suicidal Ideation Suicidal Ideation: No - Homicidal Ideation Homicidal Ideation: No Goal/Treatment Plan - Goal/Treatment Plan Need for Continued Stay: Severe depression anxiety, Discharge may exacerbated symptoms Progress Toward Problem(s) and Goals/Treatment Plan: SHELBI; MDD -Individual and group therapy -Increase Buspar to 10 mg PO TID -Continue Cymbalta 60 mg PO Daily, Neurontin 200 mg PO TID, Namenda 10 mg PO Daily and Trazodone 150 mg PO HS -Disposition planning Estimated Date of D/C: 07/22/17
[2017-07-22] MEDS: Pantoprazole 20 mg EC Tab PO SCH (08:33)
[2017-07-22] MEDS: Metoprolol Succinate 100 mg XL Tab PO SCH (08:35)
[2017-07-22 08:36] VITALS: BP 144/95; PULSE 77
[2017-07-22] MEDS: Petrolatum UD PAK TOP SCH (08:37)
[2017-07-22 09:18] VITALS: RESP 18; TEMP 97.9
--- NOTE | 2017-07-22 14:12 | PCM.PYCHDC ---
Mental Status Examination - Mental Status Examination Orientation: Person, Place, Situation, Time Memory: Intact Mood: Neutral Affect: Broad Speech: Appropriate Attention: WNL Concentration: WNL Association: WNL Fund of Knowledge: WNL Formal Thought Process: No Impairment Description of patient's judgement and insight: fair insight and judgment Psychotic Thoughts and Behaviors: pt denied perceptual disturbances non elicited Suicidal Ideation: No Current Homicidal Ideation?: No Discharge Summary - Discharge Note Reason for Hospitalization: PT REQUESTED HELP pt is a 57 years old female with previous diagnosis of depression and anxiety, currently follows up with Dr Mills, pt has been feeling increasingly depressed and lonely, pt has been suffering from fibromyalgia for long time, on day of evaluation she started having suicidal ideations, pt overdosed on her medications, took five pills of fioricet and then contacted the ambulance pt reports depressed mood anhedonia, poor sleep and poor appetite, continues to have passive suicidal ideations, denied any current psychotic or manic symptoms PT also presenting with memory decline with possible pseudodementia Consultations:: List each consultation separately and include: 1. Reason for request. 2. Findings. 3. Follow-up Summary of Hospital Course include:: 1. Description of specific treatment plan utilized for patients during their course of treatmen. 2. Summarize the time- course for resolution of acute symptoms and/or regressed behaviors. 3. Describe issues identified and worked on during hospitalization. 4. Describe medication utilized. 5. Describe medical problems identified and treated. 6. 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 follow up plan discussed with family upon pt consent pt on discharge , mental status was stable denied any current suicidal or homicidal ideations, denied perceptual disturbances, no reported side effects of medication at current mental status not danger to self or others - Diagnosis (1) Depression Current Visit: Yes Status: Acute - Final Diagnosis (DSM 5) Condition upon Discharge: GOOD DSM 5: major depression , recurrent severe without psychotic features generalized anxiety disorder Disposition: HOME/ ROUTINE Follow-up Treatment Plan: continue current medications CBT group and supportive therapy Prescriptions/Medication Reconciliation: busPIRone [Buspar] 10 mg PO TID 15 Days #45 tab DULoxetine [Cymbalta] 60 mg PO DAILY 15 Days #15 ecc Gabapentin [Neurontin] 200 mg PO TID 15 Days #60 cap Memantine [Namenda] 10 mg PO DAILY 15 Days #15 tab traZODone [Desyrel] 150 mg PO HS 15 Days #45 tab - Antipsychotic Medications Pt discharged on 2 or more routine antipsychotic medications: No
--- NOTE | 2017-07-23 07:10 | CP.PCM.PN ---
Subjective - Date & Time of Evaluation Date of Evaluation: 07/19/17 Time of Evaluation: 10:00 - Subjective Subjective: Patient remains stable Noted BP to be stable Has no headache No dizziness. Objective - Vital Signs/Intake and Output Vital Signs (last 24 hours): Temp Pulse Resp BP Pulse Ox 97.9 F 77 18 144/95 H 07/22/17 09:00 07/22/17 09:00 07/22/17 09:00 07/22/17 09:00 - Labs Labs: 07/10/17 05:40 07/10/17 05:40 - Head Exam Head Exam: NORMAL INSPECTION - Eye Exam Eye Exam: Normal appearance - ENT Exam ENT Exam: Mucous Membranes Moist - Respiratory Exam Respiratory Exam: Clear to Ausculation Bilateral - Cardiovascular Exam Cardiovascular Exam: REGULAR RHYTHM - GI/Abdominal Exam GI & Abdominal Exam: Normal Bowel Sounds Assessment and Plan (1) Hypertension Status: Acute (2) Diabetes mellitus type 2 in obese Status: Acute (3) Depression Status: Acute - Assessment and Plan (Free Text) Plan: Cont meds Cont diet Cont tx follow up
--- NOTE | 2017-07-23 07:13 | CP.PCM.PN ---
Subjective - Date & Time of Evaluation Date of Evaluation: 07/21/17 Time of Evaluation: 11:00 - Subjective Subjective: Patient remains stable Has no dizziness Tolerates meds Objective - Vital Signs/Intake and Output Vital Signs (last 24 hours): Temp Pulse Resp BP Pulse Ox 97.9 F 77 18 144/95 H 07/22/17 09:00 07/22/17 09:00 07/22/17 09:00 07/22/17 09:00 - Labs Labs: 07/10/17 05:40 07/10/17 05:40 - Eye Exam Eye Exam: Normal appearance - ENT Exam ENT Exam: Mucous Membranes Moist - Respiratory Exam Respiratory Exam: Clear to Ausculation Bilateral - Cardiovascular Exam Cardiovascular Exam: REGULAR RHYTHM - GI/Abdominal Exam GI & Abdominal Exam: Normal Bowel Sounds Assessment and Plan (1) Hypertension Status: Acute (2) Diabetes mellitus type 2 in obese Status: Acute (3) Depression Status: Acute - Assessment and Plan (Free Text) Plan: Cont tx Cont meds Low salt diet
--- NOTE | 2017-07-23 07:16 | CP.PCM.PN ---
Subjective - Date & Time of Evaluation Date of Evaluation: 07/13/17 Time of Evaluation: 10:00 - Subjective Subjective: Patient has some dizziness Sleeps most of the time Has no headaches Feels a lot better with her depression Objective - Vital Signs/Intake and Output Vital Signs (last 24 hours): Temp Pulse Resp BP Pulse Ox 97.9 F 77 18 144/95 H 07/22/17 09:00 07/22/17 09:00 07/22/17 09:00 07/22/17 09:00 - Labs Labs: 07/10/17 05:40 07/10/17 05:40 - Head Exam Head Exam: NORMAL INSPECTION - Eye Exam Eye Exam: Normal appearance - ENT Exam ENT Exam: Mucous Membranes Moist - Respiratory Exam Respiratory Exam: Clear to Ausculation Bilateral - Cardiovascular Exam Cardiovascular Exam: REGULAR RHYTHM - GI/Abdominal Exam GI & Abdominal Exam: Normal Bowel Sounds - Neurological Exam Neurological Exam: Awake, Oriented x3 Assessment and Plan (1) Hypertension Status: Acute (2) Diabetes mellitus type 2 in obese Status: Acute (3) Depression Status: Acute - Assessment and Plan (Free Text) Plan: Cont meds Cont tx advised to get involved with group activities
== END 2017-07-22 15:10 | disposition home or self-care (01) | DRG 430 ==
LOC: H.PSYCH 16:29
PROVIDERS: ADMIT Psychiatry & Neurology Psychiatry; ATTEND Psychiatry & Neurology Psychiatry
PROC: GZHZZZZ Group Psychotherapy (ICD-10-PCS; principal; 2017-07-09)
PROC: GZ58ZZZ Individual Psychotherapy, Cognitive-Behavioral (ICD-10-PCS; 2017-07-09)
PROC: GZ56ZZZ Individual Psychotherapy, Supportive (ICD-10-PCS; 2017-07-09)
DX: F33.2 Major depressive disorder, recurrent severe without psychotic features (principal); E11.9 Type 2 diabetes mellitus without complications; R45.851 Suicidal ideations; E66.9 Obesity, unspecified; F41.1 Generalized anxiety disorder; G47.00 Insomnia, unspecified; M79.7 Fibromyalgia; Z68.30 Body mass index [BMI] 30.0-30.9, adult; I10 Essential (primary) hypertension; Z88.2 Allergy status to sulfonamides; Z91.013 Allergy to seafood; E78.5 Hyperlipidemia, unspecified